=== PATIENT | female | born 1965 | race Caucasian/White ===

== ENCOUNTER 2023-09-13 11:59 | Emergency (ER) | payer OTHER ==
[~2023-09-13] VITALS: Ht 160 cm; Wt 68.0 kg
[2023-09-13 12:01] VITALS: BP 122/77; PULSE 100; RESP 18; TEMP 98.2; O2SAT 99
== END 2023-09-13 12:50 | disposition left against medical advice (07) ==
LOC: ER 11:59
DX: R05.9 Cough, unspecified (principal); Z53.21 Procedure and treatment not carried out due to patient leaving prior to being seen by health care provider
CPT/HCPCS: 99281